=== PATIENT | male | born 1965 | race Caucasian/White ===

== ENCOUNTER 2021-07-22 09:08 | Day surgery (SDC) | payer OTHER ==
[2021-07-22] MEDS ORDERED: Midazolam 1 MG/ML 2 ML SDV ONE (09:44)
[2021-07-22] MEDS ORDERED: Propofol 200 MG/20 ML SDV ONE (09:44)
[2021-07-22] MEDS ORDERED: fentaNYL 100 MCG/2 ML SDV ONE (09:44)
[2021-07-22] MEDS ORDERED: Sodium Chloride 0.9% 1,000 ML IV SCH (10:00)
--- NOTE | 2021-07-23 04:56 | OR ---
DATE OF PROCEDURE: 07/22/2021 SURGEON: Roscoe Ríos MD PROCEDURE: Colonoscopy. FINDINGS: Rectal polyp, approximately 5 mm, completely removed using cold biopsy forceps. COMPLICATIONS: None. BAND RIPSAW OPERATOR: None. ANESTHESIA: MAC. PREOPERATIVE DIAGNOSIS: Screening colonoscopy. POSTOPERATIVE DIAGNOSIS: Screening colonoscopy. RISKS: Risks, benefits, alternatives, and limitations including, but not limited to infection, bleeding, perforation, false positives, false negatives were explained to the patient and he wished to proceed. PROCEDURE IN DETAIL: The patient was placed in left lateral decubitus position. Digital rectal exam was performed without abnormality. Scope was introduced and advanced atraumatically to the ileocecal valve. A photo was taken of the appendiceal orifice. The scope was brought back to the ascending, transverse, descending colon, and retroflexed. No evidence of old or new blood. No polyps. No masses. No diverticulosis. No colitis. Greater than 8 minutes was spent removing the scope. The patient tolerated the procedure well. 90% of the luminal surface could be seen. Roscoe Ríos MD /[id number]
== END 2021-07-22 12:20 | disposition home or self-care (01) ==
LOC: JP.SDS 09:08
PROVIDERS: ATTEND Surgery
DX: Z12.11 Encounter for screening for malignant neoplasm of colon (principal); K62.1 Rectal polyp; E78.5 Hyperlipidemia, unspecified
CPT/HCPCS: 88305; J2250; J2704; J3010; J7030

== ENCOUNTER 2021-09-22 21:34 | Emergency (ER) | payer OTHER ==
[2021-09-22] MEDS ORDERED: Sodium Chloride 0.9% 10 ML Syringe FLUSH PRN (22:11)
[2021-09-22] MEDS ORDERED: Sodium Chloride 0.9% 1,000 ML IV STA (22:11)
[2021-09-22] MEDS ORDERED: fentaNYL 100 MCG/2 ML SDV IVPUSH ONE (22:13)
[2021-09-22] MEDS ORDERED: Ondansetron 4 MG/2 ML SDV IVPUSH ONE (22:13)
--- NOTE | 2021-09-22 22:16 | EDM.PDOC ---
ED HPI GENERAL MEDICAL PROBLEM - General Chief Complaint: Abdominal Pain Stated Complaint: ABDOMINAL PAIN Time Seen by Provider: 09/22/21 21:51 Source of Information: Reports: Patient, Family, RN Notes Reviewed History Limitations: Reports: No Limitations - History of Present Illness INITIAL COMMENTS - FREE TEXT/NARRATIVE: 56-year-old gentleman presents the emergency department today with complaint of abdominal pain, states he had abdominal pain about a week ago lasted about a day and then resolved however today the pain came back and is progressively getting worse. It is constant has had some nausea normal bowel movements normal flatus no history of abdominal surgeries no history of tobacco use Upper Abdomen Pain Score (Numeric/FACES): 8 - Related Data Allergies Allergy/AdvReac Type Severity Reaction Status Date / Time No Known Allergies Allergy Verified 09/22/21 21:49 Home Meds: Home Meds Hydrocodone/Acetaminophen [Lorcet 5-325 mg Tablet] 1 tab PO ASDIRECTED 09/22/21 [History] Past Medical History HEENT History: Reports: Hard of Hearing Cardiovascular History: Reports: High Cholesterol Gastrointestinal History: Reports: Colon Polyp Musculoskeletal History: Reports: Osteoarthritis, Other (See Below) Other Musculoskeletal History: left knee pain-stem cell and prp injection - Past Surgical History HEENT Surgical History: Reports: Tonsillectomy GI Surgical History: Reports: Colonoscopy Social & Family History - Family History Family Medical History: No Pertinent Family History - Tobacco Use Tobacco Use Status *Q: Never Tobacco User - Caffeine Use Caffeine Use: Reports: Coffee - Alcohol Use Days Per Week of Alcohol Use: 2 Number of Drinks Per Day: 2 Total Drinks Per Week: 4 - Recreational Drug Use Recreational Drug Use: No ED ROS GENERAL - Review of Systems Review Of Systems: See Below Constitutional: Reports: No Symptoms Respiratory: Reports: No Symptoms Cardiovascular: Reports: No Symptoms GI/Abdominal: Reports: Abdominal Pain, Flatus, Nausea. Denies: Constipation, Diarrhea, Vomiting ED EXAM, GI/ABD - Physical Exam Exam: See Below Exam Limited By: No Limitations General Appearance: Alert, WD/WN, No Apparent Distress Neck: Normal Inspection, Supple, Non-Tender, Full Range of Motion Respiratory/Chest: No Respiratory Distress, Lungs Clear, Normal Breath Sounds, No Accessory Muscle Use, Chest Non-Tender Cardiovascular: Regular Rate, Rhythm, No Murmur GI/Abdominal Exam: Soft, Tender (Midline epigastric region), Other (Aorta is palpable) Course - Vital Signs Last Recorded V/S: Last Vital Signs Temp 95.2 F L 09/22/21 21:45 Pulse 58 L 09/23/21 00:43 Resp 21 H 09/22/21 22:55 BP 180/97 H 09/23/21 00:43 Pulse Ox 91 L 09/23/21 00:43 - Orders/Labs/Meds Orders: Active Orders 24 hr Category Date Time Status Peripheral IV Care [RC] . DIRECTED Care 09/22/21 22:12 Active Iopamidol [Isovue-300 (61%)] Med 09/22/21 22:22 Active 150 ml IV . DIRECTED PRN Sodium Chloride 0.9% [Normal Saline] 100 ml Med 09/22/21 22:30 Active IV ASDIRECTED Sodium Chloride 0.9% [Saline Flush] Med 09/22/21 22:11 Active 10 ml FLUSH ASDIRECTED PRN Peripheral IV Insertion Adult [OM.PC] Urgent Oth 09/22/21 22:11 Ordered Medication Orders Sodium Chloride (Normal Saline) 100 mls @ 3 mls/sec IV ASDIRECTED [facility] Last Admin: 09/22/21 22:44 Dose: 3 mls/sec Documented by: TITA Iopamidol (Iopamidol 612 Mg/Ml 150 Ml Bottle) 150 ml IV . DIRECTED PRN PRN Reason: RADIOLOGY EXAM Stop: 09/23/21 22:23 Last Admin: 09/22/21 22:44 Dose: 150 ml Documented by: TITA Sodium Chloride (Sodium Chloride 0.9% 10 Ml Syringe) 10 ml FLUSH ASDIRECTED PRN PRN Reason: Keep Vein Open Last Admin: 09/22/21 22:24 Dose: 10 ml Documented by: ADRIEN Labs: Laboratory Tests 09/22/21 09/22/21 09/22/21 Range/Units 21:58 21:58 21:58 WBC 8.9 (4.5-11.0) K/uL RBC 4.63 (4.30-5.90) M/uL Hgb 14.4 (12.0-15.0) g/dL Hct 42.0 (40.0-54.0) % MCV 91 (80-98) fL MCH 31 (27-31) pg MCHC 34 (32-36) % Plt Count 224 (150-400) K/uL Neut % (Auto) 67.7 H (36-66) % Lymph % (Auto) 20.7 L (24-44) % [place] % (Auto) 7.5 H (2-6) % Eos % (Auto) 3.9 (2-4) % Baso % (Auto) 0.2 (0-1) % Sodium 140 (140-148) mmol/L Potassium 4.1 (3.6-5.2) mmol/L Chloride 103 (100-108) mmol/L Carbon Dioxide 29 (21-32) mmol/L Anion Gap 8.2 (5.0-14.0) mmol/L BUN 16 (7-18) mg/dL Creatinine 1.1 (0.8-1.3) mg/dL Est Cr Clr Drug Dosing 79.86 mL/min Estimated GFR (MDRD) > 60 (>60) Glucose 148 H (74-106) mg/dL Lactic Acid 1.8 (0.4-2.0) mmol/L Calcium 9.2 (8.5-10.1) mg/dL Total Bilirubin 0.3 (0.2-1.0) mg/dL AST 18 (15-37) U/L ALT 32 (12-78) U/L Alkaline Phosphatase 89 (46-116) U/L Troponin I High Sens 5.4 (<=60.3) pg/mL Total Protein 7.5 (6.4-8.2) g/dL Albumin 3.9 (3.4-5.0) g/dL Globulin 3.6 H (2.3-3.5) g/dL Albumin/Globulin Ratio 1.1 L (1.2-2.2) Lipase 96 (73-393) U/L Urine Color (YELLOW) Urine Appearance (CLEAR) Urine pH (5.0-8.0) Ur Specific [place] (1.008-1.030) Urine Protein (NEGATIVE) mg/dL Urine Glucose (UA) (NEGATIVE) mg/dL Urine Ketones (NEGATIVE) mg/dL Urine Occult Blood (NEGATIVE) Urine Nitrite (NEGATIVE) Urine Bilirubin (NEGATIVE) Urine Urobilinogen (0.2-1.0) EU/dL Ur Leukocyte Esterase (NEGATIVE) Urine RBC (0-5) Urine WBC (0-5) Ur Epithelial Cells Amorphous Sediment Urine Bacteria Urine Mucus 09/22/21 Range/Units 23:07 WBC (4.5-11.0) K/uL RBC (4.30-5.90) M/uL Hgb (12.0-15.0) g/dL Hct (40.0-54.0) % MCV (80-98) fL MCH (27-31) pg MCHC (32-36) % Plt Count (150-400) K/uL Neut % (Auto) (36-66) % Lymph % (Auto) (24-44) % [place] % (Auto) (2-6) % Eos % (Auto) (2-4) % Baso % (Auto) (0-1) % Sodium (140-148) mmol/L Potassium (3.6-5.2) mmol/L Chloride (100-108) mmol/L Carbon Dioxide (21-32) mmol/L Anion Gap (5.0-14.0) mmol/L BUN (7-18) mg/dL Creatinine (0.8-1.3) mg/dL Est Cr Clr Drug Dosing mL/min Estimated GFR (MDRD) (>60) Glucose (74-106) mg/dL Lactic Acid (0.4-2.0) mmol/L Calcium (8.5-10.1) mg/dL Total Bilirubin (0.2-1.0) mg/dL AST (15-37) U/L ALT (12-78) U/L Alkaline Phosphatase (46-116) U/L Troponin I High Sens (<=60.3) pg/mL Total Protein (6.4-8.2) g/dL Albumin (3.4-5.0) g/dL Globulin (2.3-3.5) g/dL Albumin/Globulin Ratio (1.2-2.2) Lipase (73-393) U/L Urine Color Yellow (YELLOW) Urine Appearance Clear (CLEAR) Urine pH 6.0 (5.0-8.0) Ur Specific [place] 1.025 (1.008-1.030) Urine Protein Negative (NEGATIVE) mg/dL Urine Glucose (UA) Negative (NEGATIVE) mg/dL Urine Ketones Negative (NEGATIVE) mg/dL Urine Occult Blood Negative (NEGATIVE) Urine Nitrite Negative (NEGATIVE) Urine Bilirubin Negative (NEGATIVE) Urine Urobilinogen 0.2 (0.2-1.0) EU/dL Ur Leukocyte Esterase Negative (NEGATIVE) Urine RBC 0-5 (0-5) Urine WBC 0-5 (0-5) Ur Epithelial Cells Not seen Amorphous Sediment Not seen Urine Bacteria Rare Urine Mucus Not seen Meds: Medications Generic Name Dose Route Start Last Admin Trade Name Freq PRN Reason Stop Dose Admin Sodium Chloride 100 mls @ 3 mls/sec 09/22/21 22:30 09/22/21 22:44 Normal Saline IV 3 mls/sec ASDIRECTED DAREK Administration Iopamidol 150 ml 09/22/21 22:22 09/22/21 22:44 Iopamidol 612 Mg/Ml 150 Ml Bottle IV 09/23/21 22:23 150 ml . DIRECTED PRN Administration RADIOLOGY EXAM Sodium Chloride 10 ml 09/22/21 22:11 09/22/21 22:24 Sodium Chloride 0.9% 10 Ml Syringe FLUSH 10 ml ASDIRECTED PRN Administration Keep Vein Open Discontinued Medications Generic Name Dose Route Start Last Admin Trade Name Wisam PRN Reason Stop Dose Admin Fentanyl 50 mcg 09/22/21 22:13 09/22/21 22:20 Fentanyl 100 Mcg/2 Ml Sdv IVPUSH 09/22/21 22:14 50 mcg ONETIME ONE Administration Hydromorphone HCl 1 mg 09/22/21 22:53 09/22/21 23:05 Hydromorphone 1 Mg/Ml Syringe IVPUSH 09/22/21 22:54 1 mg ONETIME ONE Administration Sodium Chloride 1,000 mls @ 999 mls/hr 09/22/21 22:11 09/22/21 22:24 Normal Saline IV 09/22/21 23:11 999 mls/hr .BOLUS STA Administration Ondansetron HCl 4 mg 09/22/21 22:13 09/22/21 22:18 Ondansetron 4 Mg/2 Ml Sdv IVPUSH 09/22/21 22:14 4 mg ONETIME ONE Administration Sodium Chloride 10 ml 09/22/21 22:22 09/22/21 22:44 Sodium Chloride 0.9% 10 Ml Sdv FLUSH 09/22/21 22:23 10 ml ONETIME ONE Administration Departure - Departure Time of Disposition: 01:09 Disposition: Home, Self-Care 01 Condition: Fair Clinical Impression: Gallbladder calculus without cholecystitis Qualifiers: Biliary obstruction: without biliary obstruction Qualified Code(s): K80.20 - Calculus of gallbladder without cholecystitis without obstruction - Discharge Information Instructions: Cholelithiasis, [id number] Referrals: PCP,None [Primary Care Provider] - Forms: ED Department Discharge Additional Instructions: Recommend bland diet, please call to the [facility] in the morning and get an appointment time with Dr. Ríos from general surgery use your hydrocodone as needed for pain control, call or return to the emergency depar tment worsening of symptoms Sepsis Event Note (ED) - Evaluation Sepsis Screening Result: No Definite Risk - Focused Exam Vital Signs: Vital Signs Temp Pulse Resp BP Pulse Ox 09/23/21 00:43 58 L 180/97 H 91 L 09/22/21 23:46 59 L 163/82 H 09/22/21 22:55 54 L 21 H 167/92 H 98 09/22/21 22:24 64 16 166/91 H 93 L 09/22/21 21:45 95.2 F L 54 L 16 173/84 H 99 - My Orders Last 24 Hours: My Active Orders 09/22/21 22:11 Sodium Chloride 0.9% [Saline Flush] 10 ml FLUSH ASDIRECTED PRN Peripheral IV Insertion Adult [OM.PC] Urgent 09/22/21 22:12 Peripheral IV Care [RC] . DIRECTED 09/22/21 22:22 Iopamidol [Isovue-300 (61%)] 150 ml IV . DIRECTED PRN 09/22/21 22:30 Sodium Chloride 0.9% [Normal Saline] 100 ml IV ASDIRECTED - Assessment/Plan Last 24 Hours: My Active Orders 09/22/21 22:11 Sodium Chloride 0.9% [Saline Flush] 10 ml FLUSH ASDIRECTED PRN Peripheral IV Insertion Adult [OM.PC] Urgent 09/22/21 22:12 Peripheral IV Care [RC] . DIRECTED 09/22/21 22:22 Iopamidol [Isovue-300 (61%)] 150 ml IV . DIRECTED PRN 09/22/21 22:30 Sodium Chloride 0.9% [Normal Saline] 100 ml IV ASDIRECTED Plan: Assessment Acuity = acute Site and laterality = dilated gallbladder with gallstones in the neck without cholecystitis Etiology = none Manifestations = abdominal pain Location of injury = Home Lab values = CBC, CMP, troponin, lactic acid all within normal limits CT scan describes a gallstone above Plan Call discussed the case with Dr. Ríos at 1 AM surgeon on-call he agreed to evaluate the patient in clinic for further surgical intervention prescription written for hydrocodone 5/325 1 tab p.o. 3 times daily as needed total #10 This note was dictated using [employer] voice recognition software please call with any questions on syntax or grammar.
[2021-09-22] MEDS ORDERED: Iopamidol 612 MG/ML 150 ML Bottle IV PRN (22:22)
[2021-09-22] MEDS ORDERED: Sodium Chloride 0.9% 10 ML SDV FLUSH ONE (22:22)
[2021-09-22] MEDS ORDERED: Sodium Chloride 0.9% 100 ML IV SCH (22:30)
[2021-09-22] MEDS ORDERED: HYDROmorphone 1 MG/ML Syringe IVPUSH ONE (22:53)
--- NOTE | 2021-09-23 00:19 | CRLCT ---
For Patients: As a result of the Century Cures Act, medical imaging exams and procedure reports are released immediately into your electronic medical record. You may view this report before your referring provider. If you have questions, please contact your health care provider. INDICATION: Midline pain. TECHNIQUE: CT abdomen and pelvis acquired with 150 cc Omnipaque 300 IV contrast. COMPARISON: None. FINDINGS: Lower chest: Mild dependent atelectasis. Liver: Decreased attenuation along the falciform ligament is suggestive of focal fatty infiltration. No worrisome hepatic lesions. Gallbladder and bile ducts: The gallbladder is distended. Large gallstones lie in the gallbladder neck. Mild intrahepatic biliary dilation. Normal caliber common bile duct. Pancreas: Unremarkable. No mass or inflammation. Spleen: Unremarkable. Normal in size. No masses. Adrenal glands: Unremarkable. No nodules. Kidneys: Tiny cortical hypodensities are most suggestive of cysts. No solid masses or hydronephrosis. GI tract: Scattered diverticular project from the colon, without findings to suggest diverticulitis. Normal caliber bowel loops. Normal appendix. Vasculature: Unremarkable. Mesenteric arteries are patent. Lymph nodes: No lymphadenopathy. Omentum/Peritoneum/Abdominal Wall: Unremarkable. No sign of mass or infiltration. No free air or significant free fluid. Pelvis: Unremarkable. Bones: Mild degenerative changes. No aggressive appearing lytic or blastic lesions. IMPRESSION: 1. Distended gallbladder with gallstones in the gallbladder neck and mild intrahepatic biliary dilation could indicate impacted gallstones. No inflammation to suggest cholecystitis. 2. No other CT abnormality to suggest etiology of patient`s symptoms. Please note that all CT scans at this facility use dose modulation, iterative reconstruction, and/or weight-based dosing when appropriate to reduce radiation dose to as low as reasonably achievable. Dictated by Antonio Amaro MD @ 09/23/2021 12:18:51 AM (Electronically Signed)
[2021-09-23] MEDS ORDERED: HYDROmorphone 1 MG/ML Syringe IVPUSH ONE (01:07)
== END 2021-09-23 01:40 | disposition home or self-care (01) ==
LOC: JP.ED 21:34
DX: K80.20 Calculus of gallbladder without cholecystitis without obstruction (principal)
CPT/HCPCS: 36415; 74177; 80053; 81001; 83605; 83690; 84484; 85025; 96374; 96375; 96376; 99284; J1170; J2405; J3010; J7030; Q9967

== ENCOUNTER 2021-09-25 05:30 | Day surgery (SDC) | payer OTHER ==
[2021-09-25] MEDS ORDERED: Acetaminophen 500 MG Tab PO ONE (05:45)
[2021-09-25] MEDS: Dextrose 5%-Lactated Ringers 1,000 ML IV SCH ×2 (06:28→21:39)
[2021-09-25] MEDS ORDERED: Bupivacaine 0.5%/EPINEPHrine 1:200,000 50 ML MDV ONE (06:34)
[2021-09-25] MEDS ORDERED: fentaNYL 250 MCG/5 ML SDV ONE (07:01)
[2021-09-25 07:02] LABS: CORONAVIRUS COVID-19 NAA NEGATIVE (NEGATIVE)
[2021-09-25] MEDS ORDERED: Glycopyrrolate 0.2 MG/ML 5 ML MDV ONE (07:25)
[2021-09-25] MEDS ORDERED: Rocuronium 50 MG/5 ML Vial ONE (07:25)
[2021-09-25] MEDS ORDERED: Ondansetron 4 MG/2 ML SDV ONE (07:25)
[2021-09-25] MEDS ORDERED: Neostigmine Methylsulfate 1 MG/ML 5 ML Syringe ONE (07:25)
[2021-09-25] MEDS ORDERED: Propofol 200 MG/20 ML SDV ONE (07:25)
[2021-09-25] MEDS ORDERED: Succinylcholine 200 MG/10 ML MDV ONE (07:25)
[2021-09-25] MEDS ORDERED: Dexamethasone 4 MG/ML SDV ONE (07:25)
[2021-09-25] MEDS ORDERED: Ampicillin/Sulbactam Na 3 GM in Sodium Chloride 0.9% 100 ML IV ONE (07:30)
[2021-09-25] MEDS ORDERED: Ketamine 500 MG/5 ML MDV IV SCH (07:30)
[2021-09-25] MEDS ORDERED: Ketamine 22 MG in Sodium Chloride 0.9% 19.78 ML IV SCH (07:30)
[2021-09-25] MEDS ORDERED: fentaNYL 100 MCG/2 ML SDV ONE ×2 (07:39→07:52)
[2021-09-25] MEDS ORDERED: Meropenem 500 MG SDV ONE (07:41)
[2021-09-25] MEDS ORDERED: Sodium Chloride 0.9% 10 ML ONE (07:41)
[2021-09-25] MEDS ORDERED: Ketorolac 30 MG/ML SDV ONE (07:43)
[2021-09-25] MEDS ORDERED: Lactated Ringers 1,000 ML ONE (08:00)
[2021-09-25] MEDS ORDERED: oxyCODONE 5 MG Tab PO PRN (10:09)
[2021-09-25] MEDS: Ibuprofen 600 MG Tab PO SCH ×2 (10:32→16:31)
[2021-09-25] MEDS ORDERED: Ondansetron 4 MG/2 ML SDV IVPUSH PRN (11:00)
[2021-09-25] MEDS ORDERED: HYDROmorphone 1 MG/ML Syringe IV PRN (11:00)
[2021-09-25] MEDS ORDERED: HYDROmorphone 0.5 MG/0.5 ML Syringe IVPUSH PRN (11:00)
[2021-09-25] MEDS: Acetaminophen 500 MG Tab PO SCH ×2 (13:53→19:30)
[2021-09-25] MEDS: Ampicillin/Sulbactam Na 3 GM in Sodium Chloride 0.9% 100 ML IV SCH ×2 (13:53→19:30)
[2021-09-25] MEDS ORDERED: Pantoprazole 40 MG Vial IVPUSH SCH (14:00)
[2021-09-26] MEDS: Acetaminophen 500 MG Tab PO SCH ×2 (02:28→08:04)
[2021-09-26] MEDS: Ampicillin/Sulbactam Na 3 GM in Sodium Chloride 0.9% 100 ML IV SCH ×2 (02:28→07:15)
--- NOTE | 2021-09-27 00:57 | DISCH ---
ADMISSION DIAGNOSIS: Cholecystitis. DISCHARGE DIAGNOSES: Diagnostic laparoscopy with: 1. Cholecystectomy. 2. Drainage of pericholecystic abscess. POSTOPERATIVE DIAGNOSES: Acute necrotizing cholecystitis with pericholecystic abscess and cholelithiasis. Date of procedure 09/25/2021. Surgeon: Raymond Oro MD. HISTORY: Tong Garnica is a pleasant 56-year-old male with right upper quadrant abdominal pain. After preoperative evaluation, discussion of possible risks and possible complications, he wishes to proceed with surgical procedure. HOSPITAL COURSE: Tong had his surgery on 09/25/2021. He had no operative complications. On postop day 1, he was able to be discharged to home. Pain was controlled with Tylenol and he was up ambulating. Oral intake and output adequate. Total bilirubin was 0.4, alkaline phosphatase was 54. PHYSICAL EXAMINATION: GENERAL: Tong is a 56-year-old male. VITAL SIGNS: Height is 5 feet 11 inches, weight is 219 pounds, BMI is 30. TPR is 97, 62, 16, blood pressure 123/71. HEENT: Negative. NECK: Supple. HEART: Regular rate and rhythm. LUNGS: Clear. ABDOMEN: Dressings dry and intact. JOE drain is intact, but will be removed prior to discharge. Abdominal binder is on. EXTREMITIES: Without peripheral edema. DISPOSITION: Discharged to home. CONDITION: Stable and improving. FOLLOWUP APPOINTMENT: With Magui Sinclair PA-C, on 10/07/2021 at 9 a.m. HOME MEDICATIONS: Augmentin 875 mg 1 tablet p.o. b.i.d. #10, Tylenol 1000 mg q.6 hours for pain p.r.n. DIET: Usual diet as tolerated. Drink 8 to 10 glasses of water a day. ACTIVITY: No lifting greater than 10 pounds for 2 weeks. Driving: Do not drive for 1 week. Shower/bathing: May shower. Wound incision care: Keep operative site clean and dry. Wear abdominal binder for 2 weeks. Notify provider if any fever, increased pain, swelling, redness, drainage, nausea, vomiting. OTHER SPECIAL INSTRUCTIONS: Use incentive spirometer 10 times every hour for 1 week. /[id number]
--- NOTE | 2021-09-27 12:54 | OR ---
DATE OF PROCEDURE: 09/25/2021 SURGEON: Raymond Oro MD PREOPERATIVE DIAGNOSIS: Acute cholecystitis. POSTOPERATIVE DIAGNOSIS: Acute necrotizing cholecystitis with pericholecystic abscess. OPERATIVE PROCEDURE: Diagnostic laparoscopy with: 1. Cholecystectomy (63069). 2. Drainage of pericholecystic abscess (09415). ANESTHESIA: General. RESOURCE MANAGEMENT SPECIALIST: Magui Sinclair PA-C INDICATIONS FOR PROCEDURE: This is a 56-year-old male presenting with acute cholecystitis. Plan is to proceed with laparoscopy or if necessary open cholecystectomy. Potential risks of the procedure including bleeding, infection, injury to the common bile duct or other adjacent viscera, problems with stones migrating in the common bile duct requiring additional procedures were reviewed along with the remote possibility of cardiopulmonary, septic, or hemorrhagic complications leading to were discussed, and the patient wishes to proceed. DETAILS OF PROCEDURE: The patient was taken to the operating room and placed in a supine position. After general endotracheal anesthesia was induced, the abdomen was prepped and draped. The patient was noted to have quite a bit of redness and some excoriated skin in the umbilical area. Given this, a transverse incision was made just to the right of the umbilicus and peritoneal cavity entered under direct vision with an Optiview trocar, inflated to 15 mmHg pressure of CO2. The laparoscope was then reinserted. No underlying trocar insertion site injuries were seen. Following this, 12 mm trocar was placed in the epigastrium and a 5 mm trocar in the right subcostal area. The patient was noted to have some adherent omentum to the gallbladder. This was taken off with a combination of blunt and Harmonic Scalpel dissection. As one approached the area of the infundibulum of the gallbladder, the patient was noted to have some purulent material present. This was also then subsequently found to be present between the gallbladder neck and body, and the underlying liver. Cultures of this were obtained with drainage of pericholecystic abscess initially in the area posterior to the infundibulum, and subsequently in area between the gallbladder and the liver. Dissection continued with Harmonic scalpel involving the gallbladder neck. Once the gallbladder neck and cystic duct junction were well-delineated along with the cystic artery, both structures were taken with NILDA edward. There was additional branch of artery noted during the course of the subsequent dissection which was controlled with Harmonic Scalpel as well. The gallbladder was then dissected off the gallbladder bed and delivered through the upper midline port. during removal process and all the stones were retrieved simultaneously. The gallbladder was grossly necrotic most of its substance. The area of dissection was then inspected and no bleeding or other problems were noted. The area was irrigated with meropenem-containing saline solution. A Nico-Shultz drain was taken out through the right subcostal trocar site and placed into the area of gallbladder bed and the remaining trocars were then removed and peritoneal cavity deflated. Fascia at the 12 mm site was closed with 0 Vicryl stitch, skin with 4-0 Vicryl skin stitch. Dressing was applied. The patient was taken to the recovery room in satisfactory condition. Raymond Oro MD /[id number]
== END 2021-09-26 10:30 | disposition home or self-care (01) ==
LOC: JP.SDS 05:30 → JP.MS 08:50 → JP.SDS 09-26 10:30
PROVIDERS: ATTEND Surgery
DX: K80.12 Calculus of gallbladder with acute and chronic cholecystitis without obstruction (principal); E78.00 Pure hypercholesterolemia, unspecified; Z98.890 Other specified postprocedural states; Z79.899 Other long term (current) drug therapy; Z01.812 Encounter for preprocedural laboratory examination; Z20.822 Contact with and (suspected) exposure to COVID-19
CPT/HCPCS: 0241U; 36415; 82247; 84075; 85025; 87070; 87075; 87205; A9270-GY; C9113; J0171; J0295; J0330; J1100; J1885; J2185; J2405; J2704; J2710; J2795; J3010; J3490; J7030; J7120; J7121

== ENCOUNTER 2024-11-28 09:24 | Day surgery (SDC) | payer OTHER ==
[2024-11-28] MEDS: Nozin Nasal Sanitizer NASBOTH SCH (09:49)
[2024-11-28 09:50] LABS: BASOPHILS ABSOLUTE AUTO 0.04 K/uL (0.00-0.10); BASOPHILS PERCENT AUTO 0.8 % (0.1-1.3); EOSINOPHILS ABSOLUTE AUTO 0.25 K/uL (0.00-0.40); HEMOGLOBIN 16.2 g/dL (12.9-16.9); IMMATURE GRAN PERCENT AUTO 0.4 % (0.0-0.7); LYMPHOCYTES ABSOLUTE AUTO 1.48 K/uL (0.8-3.3); LYMPHOCYTES PERCENT AUTO 29.4 % (11.4-47.7); MEAN CORPUSCULAR HEMOGLOBIN 32.1 pg (31.6-35.5); MEAN CORPUSCULAR HGB CONC 34.5 g/dL (31.6-35.5); MEAN CORPUSCULAR VOLUME 93.3 fL (81.4-99.0); MONOCYTES ABSOLUTE AUTO 0.43 K/uL (0.20-0.90); MONOCYTES PERCENT AUTO 8.5 % (3.3-12.6); NEUTROPHILS ABSOLUTE AUTO 2.82 K/uL (1.0-7.6); NEUTROPHILS PERCENT AUTO 55.9 % (40.0-78.1); PLATELET COUNT,PLT 201 K/uL (130-375); RED BLOOD CELL COUNT 5.04 M/uL (4.14-5.76)
[2024-11-28 09:51] LABS: IMMATURE GRAN ABSOLUTE AUTO 0.02 K/uL (0.00-0.23)
[2024-11-28 10:11] LABS: A/G RATIO 1.1 (1.2-2.2); ALANINE AMINOTRANSFERASE,ALT 24 U/L (12-78); ALKALINE PHOSPHATASE 71 U/L (46-116); ANION GAP 6.2 mmol/L (5.0-14.0); ASPARTATE AMNIOTRANSFERASE,AST 20 U/L (15-37); BILIRUBIN TOTAL 0.7 mg/dL (0.2-1.0); BLOOD UREA NITROGEN,BUN 15 mg/dL (7-18); CALCIUM 9.1 mg/dL (8.5-10.1); CARBON DIOXIDE,CO2 31 mmol/L (21-32); CHLORIDE,CL 103 mmol/L (100-108); EST CRCL DRUG DOSING (CG) 84.71 mL/min; ESTIMATED GFR 87 mL/min (>60); GLUCOSE RANDOM 109 mg/dL (74-106); POTASSIUM,K 4.3 mmol/L (3.6-5.2); PROTEIN TOTAL,TP 7.8 g/dL (6.4-8.2); SODIUM,NA 140 mmol/L (140-148)
[2024-11-28] MEDS: Lactated Ringers 1,000 ML IV SCH (10:14)
[2024-11-28] MEDS ORDERED: Midazolam 1 MG/ML 2 ML SDV ONE ×3 (10:18→14:30)
[2024-11-28] MEDS ORDERED: fentaNYL 100 MCG/2 ML SDV ONE ×2 (10:18→14:22)
[2024-11-28] MEDS ORDERED: Propofol 200 MG/20 ML SDV ONE ×2 (10:18→14:20)
[2024-11-28] MEDS: ceFAZolin 2 GM in Premix Bag 1 BAG IV ONE (14:05)
[2024-11-28] MEDS: Tranexamic Acid 1,000 MG in Sodium Chloride 0.9% 50 ML IV ONE (14:44)
[2024-11-28] MEDS: Bupivacaine 0.5% 50 ML MDV ONE (14:49)
[2024-11-28] MEDS ORDERED: Docusate Sodium 100 MG Cap PO PRN (16:07)
[2024-11-28] MEDS ORDERED: Ondansetron 4 MG/2 ML SDV IVPUSH PRN (16:07)
[2024-11-28] MEDS ORDERED: Magnesium Hydroxide 400 MG/5 ML Susp 30 ML Cup PO PRN (16:07)
[2024-11-28] MEDS ORDERED: Morphine 2 MG/ML SYRINGE IVPUSH PRN (16:07)
[2024-11-28] MEDS: Acetaminophen 325 MG Tab PO SCH (17:04)
[2024-11-28] MEDS: Sodium Chloride 0.9% 1,000 ML IV SCH (17:04)
[2024-11-28] MEDS: oxyCODONE 5 MG Tab PO PRN (19:41)
[2024-11-28] MEDS: Ketorolac 30 MG/ML SDV IVPUSH PRN (22:10)
[2024-11-28] MEDS: ceFAZolin 2 GM in Premix Bag 1 BAG IV SCH (22:10)
[2024-11-29] MEDS: Nozin Nasal Sanitizer NASBOTH SCH (00:05)
[2024-11-29] MEDS: Aspirin 325 MG Tab.EC PO SCH (08:46)
[2024-11-29] MEDS: oxyCODONE 5 MG Tab PO PRN (13:36)
== END 2024-11-29 15:55 | disposition home or self-care (01) ==
LOC: JP.SDS 09:24 → JP.MS 16:07 → JP.SDS 11-29 15:55
PROVIDERS: ATTEND Specialist
DX: M17.12 Unilateral primary osteoarthritis, left knee (principal); F17.210 Nicotine dependence, cigarettes, uncomplicated
CPT/HCPCS: 01400; 27447; 36415; 73560; 80053; 85025; 97110; 97116; 97161; 97165; 97535; A9270; C1713; C1776; J0665; J0690; J1885; J2250; J2704; J3010; J7030; J7120

== ENCOUNTER 2024-12-12 10:44 | Emergency (ER) | payer OTHER ==
[2024-12-12] MEDS: Apixaban 5 MG Tab PO ONE (11:43)
== END 2024-12-12 11:45 | disposition home or self-care (01) ==
LOC: JP.ED 10:44
DX: I82.402 Acute embolism and thrombosis of unspecified deep veins of left lower extremity (principal); E78.00 Pure hypercholesterolemia, unspecified; Z79.899 Other long term (current) drug therapy
CPT/HCPCS: 99283; A9270